=== PATIENT | female | born 1950 | race Caucasian/White ===

== ENCOUNTER 2023-02-11 12:04 | Outpatient (CLI) | payer OTHER ==
[2023-02-11] MEDS ORDERED: Iopamidol 370 76% 100 ML VIAL ONE (13:45)
== END 2023-02-11 12:05 | disposition home or self-care (01) ==
LOC: CT 12:04
PROVIDERS: ATTEND Nurse Practitioner Family
DX: N39.0 Urinary tract infection, site not specified (principal)
CPT/HCPCS: 74177; 82565; Q9967